=== PATIENT | male | born 1965 | race Caucasian/White ===

== ENCOUNTER 2020-11-27 16:45 | Observation (INO) ==
[2020-11-27] MEDS ORDERED: Ondansetron 4 MG/2 ML VIAL IVP PRN (18:02)
[2020-11-27] MEDS ORDERED: Naloxone 0.4 MG/ML INJ IVP PRN (18:02)
[2020-11-27] MEDS ORDERED: Isovue-370 500 ML BOTTLE IVP ONE ×2 (18:07→18:09)
[2020-11-27] MEDS: 0.9 % Sodium Chloride 1,000 ML IVC SCH (18:32)
[2020-11-27 18:35] LABS: Hematocrit 50.2 % (37.5-50.1); Hemoglobin 16.7 g/dL (12.9-16.9)
[2020-11-27 18:42] LABS: INR 1.3
[2020-11-27] MEDS: Baclofen 10 MG TABLET PO SCH (20:05)
[2020-11-27] MEDS: Loratadine 10 MG TABLET PO SCH (20:05)
[2020-11-28 05:19] LABS: Basophils # 0.1 K/mcL (0.0-0.2); Eosinophils # 0.1 K/mcL (0.0-0.6); Eosinophils % 1.9 %; Hematocrit 46.9 % (37.5-50.1); Hemoglobin 15.6 g/dL (12.9-16.9); Immature Granulocytes % 0.8 % (0-4); Lymphocytes # 1.3 K/mcL (0.6-4.6); Lymphocytes % 20.3 %; Mean Corpuscular HGB Conc 33.3 g/dL (31.6-35.5); Mean Corpuscular Hemoglobin 31.3 pg (28.0-33.3); Mean Corpuscular Volume 94.2 fL (83.0-100.0); Mean Platelet Volume 10.3 fL (9.4-12.4); Monocytes # 0.7 K/mcL (0.0-1.3); Platelet Count 239 K/mcL (140-400); Red Blood Count 4.98 M/mcL (4.19-5.50); Red Cell Distribution Width 13.6 % (11.5-14.5); White Blood Count 6.2 K/mcL (4.3-11.1)
[2020-11-28 05:34] LABS: BUN/Creatinine Ratio 13 (6-26); Blood Urea Nitrogen 12 mg/dL (6-20); Calcium 8.4 mg/dL (8.6-10.3); Carbon Dioxide 25 mEq/L (23-29); Chloride 111 mEq/L (98-107); Glucose 106 mg/dL (70-105); Osmolality,Calculated 290 (280-300); Sodium 140 mEq/L (136-145); eGFR For African Americans > 60 (> 60); eGFR For Non-African Americans > 60 (> 60)
[2020-11-28] MEDS: 0.9 % Sodium Chloride 1,000 ML IVC SCH (07:47)
[2020-11-28] MEDS: polyethylene glycoL 3350 17 GM POWD.PACK PO SCH (08:55)
[2020-11-28] MEDS: Loratadine 10 MG TABLET PO SCH ×2 (08:55→20:18)
[2020-11-28] MEDS: Baclofen 10 MG TABLET PO SCH ×3 (08:56→20:19)
[2020-11-28] MEDS: Cyanocobalamin (B-12) 1,000 MCG TABLET PO SCH (08:56)
[2020-11-28] MEDS ORDERED: DALFAMPRIDINE 10 MG PO SCH (09:00)
[2020-11-28] MEDS: DALFAMPRIDINE 10 MG PO SCH (20:24)
[2020-11-29 06:59] LABS: Hematocrit 48.3 % (37.5-50.1); Hemoglobin 15.5 g/dL (12.9-16.9); Mean Corpuscular HGB Conc 32.1 g/dL (31.6-35.5); Mean Corpuscular Hemoglobin 30.2 pg (28.0-33.3); Mean Corpuscular Volume 94.2 fL (83.0-100.0); Mean Platelet Volume 9.8 fL (9.4-12.4); Platelet Count 222 K/mcL (140-400); Red Blood Count 5.13 M/mcL (4.19-5.50); Red Cell Distribution Width 13.4 % (11.5-14.5); White Blood Count 6.4 K/mcL (4.3-11.1)
[2020-11-29 07:21] LABS: BUN/Creatinine Ratio 14 (6-26); Blood Urea Nitrogen 13 mg/dL (6-20); Calcium 8.4 mg/dL (8.6-10.3); Carbon Dioxide 24 mEq/L (23-29); Chloride 112 mEq/L (98-107); Glucose 98 mg/dL (70-105); Osmolality,Calculated 290 (280-300); Sodium 140 mEq/L (136-145); eGFR For African Americans > 60 (> 60); eGFR For Non-African Americans > 60 (> 60)
[2020-11-29] MEDS: Cyanocobalamin (B-12) 1,000 MCG TABLET PO SCH (09:29)
[2020-11-29] MEDS: Loratadine 10 MG TABLET PO SCH ×2 (09:29→20:10)
[2020-11-29] MEDS: DALFAMPRIDINE 10 MG PO SCH ×2 (09:29→20:10)
[2020-11-29] MEDS: Baclofen 10 MG TABLET PO SCH ×3 (09:30→20:10)
[2020-11-29] MEDS: polyethylene glycoL 3350 17 GM POWD.PACK PO SCH (09:30)
[2020-11-29] MEDS: cefTRIAXone 1,000 MG in Water for inj. (sterile) 10 ML IVPB SCH (15:53)
[2020-11-30 02:49] LABS: Basophils % 0.4 %; Eosinophils # 0.1 K/mcL (0.0-0.6); Eosinophils % 1.2 %; Hematocrit 48.2 % (37.5-50.1); Hemoglobin 16.1 g/dL (12.9-16.9); Immature Granulocytes % 0.6 % (0-4); Lymphocytes # 1.3 K/mcL (0.6-4.6); Mean Corpuscular HGB Conc 33.4 g/dL (31.6-35.5); Mean Corpuscular Hemoglobin 31.4 pg (28.0-33.3); Mean Corpuscular Volume 94.1 fL (83.0-100.0); Monocytes # 0.8 K/mcL (0.0-1.3); Monocytes % 9.3 %; Neutrophils # 5.9 K/mcL (1.6-8.9); Platelet Count 232 K/mcL (140-400); Red Blood Count 5.12 M/mcL (4.19-5.50); Red Cell Distribution Width 13.4 % (11.5-14.5); Segmented Neutrophils % 72.5 %; White Blood Count 8.2 K/mcL (4.3-11.1)
[2020-11-30 03:05] LABS: BUN/Creatinine Ratio 15 (6-26); Blood Urea Nitrogen 13 mg/dL (6-20); Calcium 8.5 mg/dL (8.6-10.3); Carbon Dioxide 25 mEq/L (23-29); Chloride 110 mEq/L (98-107); Glucose 96 mg/dL (70-105); Osmolality,Calculated 290 (280-300); Sodium 140 mEq/L (136-145); eGFR For African Americans > 60 (> 60); eGFR For Non-African Americans > 60 (> 60)
[2020-11-30 07:36] VITALS: BP 123/80
[2020-11-30] MEDS: cefTRIAXone 1,000 MG in Water for inj. (sterile) 10 ML IVPB SCH (08:41)
[2020-11-30] MEDS: polyethylene glycoL 3350 17 GM POWD.PACK PO SCH (08:41)
[2020-11-30] MEDS: Loratadine 10 MG TABLET PO SCH (08:42)
[2020-11-30] MEDS: Baclofen 10 MG TABLET PO SCH (08:42)
[2020-11-30] MEDS: Cyanocobalamin (B-12) 1,000 MCG TABLET PO SCH (08:42)
[2020-11-30] MEDS: DALFAMPRIDINE 10 MG PO SCH (08:43)
== END 2020-11-30 14:36 | disposition home or self-care (01) ==
LOC: 3BNU → SUATTDRO 17:07
PROVIDERS: ADMIT Internal Medicine; ATTEND Family Medicine